=== PATIENT | male | born 2000 | race Caucasian/White ===

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

== ENCOUNTER 2022-01-23 16:22 | Emergency (ER) | payer OTHER ==
[~2022-01-23] VITALS: Ht 170.2 cm; Wt 68.2 kg
[2022-01-23] MEDS ORDERED: ARIPIPRAZOLE15 MG PO (16:47)
[2022-01-23 16:59] LABS: BASO # 0.02 K/mm3 (0.02-0.10); EOS # 0.06 K/mm3 (0.04-0.40); EOS % 0.8 % (0.0-4.0); HEMATOCRIT 45.2 % (42.0-52.0); HEMOGLOBIN 15.6 g/dL (13.5-18.0); LYMPH# 1.33 K/mm3 (1.50-4.00); MEAN CELL VOLUME 92 fl (78-100); MEAN CORPUSCULAR HEMOGLOBIN 32 pg (27-31); MEAN CORPUSCULAR HGB CONC 35 g/dL (33-37); MEAN PLATELET VOLUME 10.4 fl (7.4-10.4); MONO # 0.29 K/mm3 (0.20-0.80); NEU # 5.88 K/mm3 (1.40-6.50); PLATELET COUNT 218 K/mm3 (130-400); RED BLOOD COUNT 4.94 M/mm3 (4.20-5.60); RED CELL DISTRIBUTION WIDTH 12.2 % (11.5-14.5); WHITE BLOOD COUNT 7.6 K/mm3 (4.8-10.8)
[2022-01-23 17:10] LABS: POTASSIUM 4.7 mmol/L (3.5-5.1); SODIUM 143 mmol/L (136-145)
[2022-01-23 17:11] LABS: CALCIUM 10.2 mg/dL (8.3-10.5)
[2022-01-23 17:12] LABS: GLUCOSE 96 mg/dL (75-110); TOTAL PROTEIN 7.4 g/dL (6.4-8.3)
[2022-01-23 17:13] LABS: CARBON DIOXIDE 24 mmol/L (22-29)
[2022-01-23 17:14] LABS: TOTAL BILIRUBIN 0.5 mg/dL (0.2-1.2)
[2022-01-23 17:17] LABS: AST-SGOT 18 U/L (5-34)
[2022-01-23 17:19] LABS: ALT/SGPT 22 U/L (0-55)
[2022-01-23 17:27] LABS: ACETAMINOPHEN < 1 ug/mL; ALCOHOL IN-HOUSE < 10 mg/dL (<10)
[2022-01-24 09:28] VITALS: BP 106/67
== END 2022-01-24 15:48 ==
LOC: ED 16:22
PROVIDERS: Physician Assistant
DX: R44.0 Auditory hallucinations (principal); F17.210 Nicotine dependence, cigarettes, uncomplicated; Z20.822 Contact with and (suspected) exposure to COVID-19; Z28.310 Unvaccinated for COVID-19